=== PATIENT | male | born 1970 | race Two or more races ===

== ENCOUNTER → 2024-03-24 | Emergency (ER) | payer OTHER ==
[~2024-03-24] VITALS: Ht 177.8 cm; Wt 104.3 kg
[~2024-03-24] MED LIST: FAMOTIDINE/PF 20 MG/2 ML VIAL ONE; FAMOtidine 10 MG/ML (4ML VIAL) IV PUSH STA; FLUMAZENIL 0.5 MG/5 ML ML IV ONE; FLUMAZENIL 0.5 MG/5 ML ML IV STA; METOCLOPRAMIDE HCL 5 MG/ML VIAL IM STA; METOCLOPRAMIDE HCL 5 MG/ML VIAL ONE; NALOXONE HCL 0.4 MG/ML AMPUL IV STA; NALOXONE HCL 0.4 MG/ML AMPUL ONE
[2024-03-24 03:05] LABS: HEMATOCRIT 43.8 % (39.0-48.0); HEMOGLOBIN 14.5 g/dL (13-16.00); MEAN CORPUSCULAR HEMOGLOBIN 31.1 pg (27.00-32.0); MEAN CORPUSCULAR HGB CONC 33.1 g/dl (32.0-36.0); PLATELET COUNT 229 K/uL (150-450); RED BLOOD COUNT 4.66 M/uL (4.00-6.00)
[2024-03-24 03:17] LABS: INR 1.02; PARTIAL THROMBOPLASTIN TIME 23.9 SECONDS (22.0-34.0); PROTHROMBIN TIME 11.1 SECONDS (9.0-11.5)
[2024-03-24 03:20] LABS: ALBUMIN 3.9 gm/dL (3.4-5.0); BILIRUBIN TOTAL 0.23 mg/dL (0.3-1.2); CALCIUM 8.9 mg/dL (8.5-10.1); CREATININE SERUM 1.03 mg/dL (0.70-1.30); GFR 74.98; GLOBULINA 3.1 G/DL (2.4-3.5); POTASSIUM 3.72 mEq/L (3.5-5.1)
== END | disposition home or self-care (01) ==
LOC: ER 00:53
DX: F10.129 Alcohol abuse with intoxication, unspecified (principal); Z88.6 Allergy status to analgesic agent; Z91.013 Allergy to seafood